=== PATIENT | male | born 1970 | race Caucasian/White ===

== ENCOUNTER 2024-12-08 23:07 | Emergency (ER) | payer OTHER, SELFPAY ==
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
[2024-12-08 23:05] VITALS: BP 139/92; PULSE 101; RESP 20; TEMP 37; O2SAT 99
[2024-12-08 23:15] VITALS: BP 139/92; PULSE 100; RESP 19; O2SAT 99
[2024-12-08 23:16] VITALS: PULSE 102
[2024-12-08 23:21] VITALS: BP 139/92; PULSE 100; RESP 15; O2SAT 98
[2024-12-09] VITALS (12 sets, daily range): BP systolic 144; BP diastolic 94; PULSE 90–107; RESP 15–21; O2SAT 95–97
--- NOTE | 2024-12-09 00:05 | PC.NURSE ---
C-collar applied per protocol
[2024-12-09] MEDS: HYDROcodone/acetaminophen (*CRX) 5-325 MG TABLET 1 TAB PO (00:23)
--- NOTE | 2024-12-09 00:27 | PC.NURSE ---
This RN attempted to give pt Tetanus shot and draw ordered blood 2 times. Pt refused. This RN educated pt on importance of the shot and the blood draw and the risks of not receiving. Pt still refused. BIRGIT ness was notified and educated pt as well. This RN returned to pt room and asked again. Pt states he does not want it and that he is afraid of needles. BIRGIT notified.
[2024-12-09 00:49] LABS: Hematocrit 47.0 % (42.0-52.0); Hemoglobin 15.8 g/dL (14.0-18.0); Immature Granulocyte Percent A 0.6 % (0-0.5); Lymphocytes Absolute Auto 1.46 K/mm3 (0.9-3.2); Mean Corpuscular HGB Conc 33.6 g/dl (32-36); Mean Corpuscular Hemoglobin 30.6 pg (26-34); Mean Corpuscular Volume 91.1 fl (80-100); Nucleated Red Blood Cells Absolute Auto 0.000 K/mm3 (0.0-0.012); Nucleated Red Blood Cells Perc 0.0 % (0.0-0.2); Platelet Count Result 240 k/mm3 (150-375); Red Blood Count 5.16 M/mm3 (4.6-6.20); White Blood Count 16.4 K/mm3 (4.5-10.0)
[2024-12-09 01:06] LABS: Add Urine Microscopic? YES; Appearance Urine Cloudy (Clear); Glucose Urine UA Negative (Negative); Leukocyte Esterase Ur 1+ LEU/UL (Negative); Need Manual Microscopic Reviewed; Nitrate Urine Negative (Negative); Non Pathogenic Casts 0-2; Specific Grav Ur 1.033 (1.001-1.035)
[2024-12-09 01:08] LABS: Alanine Aminotransferase 57 U/L (6-50); Albumin Level 4.2 g/dL (3.5-5.1); Alkaline Phosphatase 68 U/L (38-126); Anion Gap 5 mmol/L (4-12); Aspartate Amino Transferase 51 U/L (17-59); Bilirubin,Total 0.8 mg/dL (0.2-1.3); Blood Urea Nitrogen 15 mg/dL (9-20); Calcium 8.8 mg/dL (8.4-10.2); Carbon Dioxide 26 mmol/L (22-30); Chloride 104 mmol/L (98-107); Estimated CRCL calculation 109 ml/min; Estimated Glomerular Filt Rate > 60; Glucose 129 mg/dL (65-110); Potassium 4.1 mmol/L (3.4-5.0); Sodium 135 mmol/L (137-145); Total Protein 7.4 g/dL (6.3-8.2)
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
[2024-12-09 02:58] LABS: Creatine Kinase 154 U/L (55-170)
--- NOTE | 2024-12-09 03:08 | ECG_ITS ---
Test Date: 2024-12-09 03:28:18 Measurements Intervals [place] Rate: 95 P: 58 MA: 164 QRS: 90 QRSD: 100 T: 27 QT: 346 QTc: 435 Interpretive Statements SINUS RHYTHM RIGHTWARD AXIS BORDERLINE ECG No previous ECG available for comparison Electronically Signed On 12-09-2024 08:48:55 CDT by Mikey Galindo M.D.
--- NOTE | 2024-12-09 03:49 | PC.NURSE ---
Addendum entered by Dulce Mcduffie RN 12/09/24 03:55: EDP notified. Original Note: This RN attempted to dress pt wounds and cleanse them. Pt refused. Pt states he is just going to go home and take a warm bath. This RN educated pt on importance of cleaning wounds using antibiotic ointment and dressing as well as risk of infection. Pt still refuses. This RN placed some 4x4 gauze, saline, bandages, antibiotic ointment, telfa and non-adherent gauze in a bag for pt to take home and educated pt on how to use these items. As well as importance of using these when arriving home.
== END 2024-12-09 04:04 | disposition home or self-care (01) ==
PROVIDERS: Emergency Provider Emergency Medicine
DX: S32.038A Other fracture of third lumbar vertebra, initial encounter for closed fracture (principal); S32.048A Other fracture of fourth lumbar vertebra, initial encounter for closed fracture; S32.058A Other fracture of fifth lumbar vertebra, initial encounter for closed fracture; S22.42XA Multiple fractures of ribs, left side, initial encounter for closed fracture; R31.9 Hematuria, unspecified; V13.4XXA Pedal cycle driver injured in collision with car, pick-up truck or van in traffic accident, initial encounter; Y93.55 Activity, bike riding; R94.31 Abnormal electrocardiogram [ECG] [EKG]
CPT/HCPCS: 36415; 70450; 71250; 72125; 74176; 80053; 81001; 82550; 85025; 87086; 93005; 99284; A9270